=== PATIENT | female | born 1980 | race Caucasian/White ===

== ENCOUNTER → 2023-05-12 19:59 | Outpatient (REF) | payer BC, SELFPAY | LOC: MRI 3T 19:59 | PROVIDERS: ATTENDING PHYSICIAN Nurse Practitioner Adult Health; FAMILY PHYSICIAN Nurse Practitioner Family | DX: H71.90 Unspecified cholesteatoma, unspecified ear (principal) | CPT/HCPCS: 70553; A9575 ==

== ENCOUNTER → 2024-09-24 12:19 | Outpatient (REF) | payer BC, SELFPAY | LOC: PAVMRI 12:19 | PROVIDERS: ATTENDING PHYSICIAN Neurological Surgery; FAMILY PHYSICIAN Nurse Practitioner Family | DX: D33.3 Benign neoplasm of cranial nerves (principal); H74.8X1 Other specified disorders of right middle ear and mastoid; H74.8X2 Other specified disorders of left middle ear and mastoid | CPT/HCPCS: 70553; A9575 ==